=== PATIENT | male | born 1970 | race Caucasian/White ===

== ENCOUNTER 2018-07-07 14:40 | Emergency (ER) | payer OTHER ==
[2018-07-07 14:57] VITALS: BMI 31.4
[2018-07-07] MEDS ORDERED: ASPIRIN 81 MG CHEWABLE TABLETS PO ONE (15:34)
[2018-07-07] MEDS ORDERED: ASPIRIN 325 MG TABLET ONE (15:35)
--- NOTE | 2018-07-07 15:46 | PDOC ---
History of Present Illness - General Chief Complaint: Respiratory Stated Complaint: CHEST PAIN Time Seen by Provider: 07/07/18 15:03 History Source: Patient Exam Limitations: No Limitations - History of Present Illness Initial Comments: HPI: 48 y/o male presenting to [facility] ER complaining of chest pain and shortness of breath. Pt states he was walking when he suddenly felt pain to the left side of his chest that radiated into his left arm. Endorses associated shortness of breath. The pain lasted approx 1 min before resolving without intervention. Pt denies any further episodes. No history of similar. Denies active complaints at time of interview. Pt states he has been experiencing a nonproductive cough, runny nose, and occasional pleuritic chest pain for the past several weeks. Worse when lying flat. Has trialed OTC medication with some relief. Denies swelling in legs or paroxysmal nocturnal dyspnea. Denies burning sensation in chest or metallic taste in mouth. PCP: Dr. Dow Family Hx: - Mother has diabetes - Denies PA in first degree relative - Denies h/o of arrhythmias - Denies h/o of sudden Social Hx: - EtOH: Endorses drinking a little, last yesterday - Tobacco: Former smoker Medical Hx: - Pt denies past medical history. Denies prescription medications. Surgical Hx: - Pt denies past surgical history. Past History - Past Medical History Allergies/Adverse Reactions: Allergies Allergy/AdvReac Type Severity Reaction Status Date / Time No Known Allergies Allergy Verified 07/07/18 14:57 Home Medications: Ambulatory Orders Albuterol Sulfate Inhaler - [Ventolin Hfa Inhaler -] 1 - 2 inh PO Q4H PRN #1 inhaler 07/07/18 CVA: No COPD: No DVT: No Hypercholesterolemia: No Seizures: No - Surgical History Cardiac Surgery: No - Immunization History Immunization Up to Date: No - Suicide/Smoking/Psychosocial Hx Smoking History: Former smoker Have you smoked in the past 12 months: No Information on smoking cessation initiated: No Hx Alcohol Use: No Drug/Substance Use Hx: No Review of Systems - Review of Systems Able to Perform ROS?: Yes Comments:: In addition to that documented in the HPI above, the additional ROS was obtained : Constitutional: Denies fevers or chills Head: Denies headache ENMT: Denies sore throat CV: Per HPI Resp: Per HPI GI: Denies vomiting or diarrhea : Denies painful urination MSK: Denies recent trauma Skin: Denies new rashes Neuro: Denies new numbness or tingling or weakness Endocrine: Denies polyuria Heme: Denies bleeding or bruising *Physical Exam - Vital Signs Last Vital Signs Temp Pulse Resp BP Pulse Ox 97.8 F 78 18 112/74 98 07/07/18 14:53 07/07/18 14:53 07/07/18 14:53 07/07/18 14:53 07/07/18 14:53 - Physical Exam Comments: Constitutional: Well-developed, well-nourished adult male in no acute distress or obvious discomfort. Found semi-fowlers on hospital bed. Alert and oriented x4. Answered all questions appropriately and completely. Speech was non-labored , non-pressured. Head: Normocephalic. No obvious external signs of trauma. Eyes: Sclerae white. Ears: Hearing grossly intact. Nose: No nasal discharge. Neck: Supple, trachea is midline. Cardiovascular / Chest: Regular rate and regular rhythm. No murmur, rubs, clicks, or gallops. Peripheral pulses: radial pulses full. No chest wall tenderness to palpation. Respiratory: Breathing unlabored. Equal chest rise and fall. Clear to auscultation bilaterally. No stridor, no wheezing, no rhonchi. Gastrointestinal: abdomen is soft, non-tender, non-distended. Neuro: Alert and oriented. Moving all four extremities spontaneously. Skin: Warm, dry, and intact. Psych: Affect: appropriate. Mood: normal. Moderate Sedation - Procedure Monitoring Vital Signs: Procedure Monitoring Vital Signs Temperature 97.8 F 07/07/18 14:53 Pulse Rate 78 07/07/18 14:53 Respiratory Rate 18 07/07/18 14:53 Blood Pressure 112/74 07/07/18 14:53 O2 Sat by Pulse Oximetry (%) 98 07/07/18 14:53 Heart Score/ECG Review - History History: Slightly suspicious - Electrocardiogram EKG: Normal - Age Age: </= 45 - Risk Factors Risk Factors Heart Score: No Hx Hypercholesterolemia, No Hx Hypertension, No Hx Diabetes, No Smoking History, No Positive family hx of cardiac disease, No Hx Obesity Based on the list above the patient has:: No risk factors known ED Treatment Course - LABORATORY CBC & Chemistry Diagram: 07/07/18 15:34 07/07/18 15:34 - RADIOLOGY Radiology Studies Ordered: Category Date Time Status CHEST PA & LAT [RAD] Stat Radiology 07/07/18 15:32 Ordered - Medications Given in the ED: ED Medications Discontinued Medications Generic Name Dose Route Start Last Admin Trade Name Freq PRN Reason Stop Dose Admin Aspirin 324 mg 07/07/18 15:34 07/07/18 15:40 Asa - PO 07/07/18 15:35 324 mg ONCE ONE Administration *DC/Admit/Observation/Transfer Diagnosis at time of Disposition: Atypical chest pain - Discharge Dispostion Disposition: HOME Condition at time of disposition: Good Decision to Admit order: No - Prescriptions Prescriptions: Albuterol Sulfate Inhaler - [Ventolin Hfa Inhaler -] 1 - 2 inh PO Q4H PRN #1 inhaler PRN Reason: Shortness Of Breath - Referrals Referrals: Willam Govea MD [Staff Physician] - - Patient Instructions Printed Discharge Instructions: DI for Atypical Chest Pain Additional Instructions: Hoy te vieron por un breve episodio de dolor en el pecho y falta de aliento. Tu radiografa de trax, EKG y anlisis de shoshana lexx normales alvaro. El dolor probablemente no est relacionado con marie corazn. He enviado jude receta para el albuterol a marie farmacia. Ava adan se indica en la etiqueta. Usted debe seguir con un cardilogo. He colocado jude referencia para que clary bina al Dr. Govea. Tendr que llamar para hacer jude robles. El nmero est incluido en tucker paquete. Mariah puede hacer un seguimiento con un neumlogo. He colocado jude referencia para que usted bina al Dr. Couch. Tendr que llamar para hacer jude robles. El nmero est incluido en tucker paquete. Mariah puede hacer un seguimiento con marie mdico de atencin primaria. Vaya al departamento de emergencias ms cercano si marie afeccin empeora o si lucia que necesita jude evaluacin de emergencia adicional. You were seen today for a short episode of chest pain and shortness of breath. Your chest xray, EKG, and blood work were normal today. The pain is not likely related to your heart. I have sent a presciption for albuterol to your pharmacy. Take as directed on the label. You should follow up with a business assistant. I have placed a referral for you to see Dr. Govea. You will need to call to make an appointment. The number is included in this packet. You can also follow up with a hog feeder. I have placed a referral for you to see Dr. Couch. You will need to call to make an appointment. The number is included in this packet. You can also follow up with your primary care doctor. Go to the nearest emergency department if your condition worsens or you feel like you need additional emergency evaluation. Print Language: AZERI - Post Discharge Activity Forms/Work/School Notes: Back to Work
[2018-07-07 16:18] LABS: BASO % 1.1 % (0-2.0); EOS % 15.8 % (0-4.5); HEMOGLOBIN 16.6 GM/dL (11.7-16.9); LYMPH % 23.4 % (8-40); MCHC 35.4 g/dl (32.0-35.9); MEAN PLT VOLUME 8.2 fl (7.5-11.1); MONO % 9.8 % (3.8-10.2); NEUT % 49.9 % (42.8-82.8); PLATELET COUNT 157 K/MM3 (134-434); RDW 12.7 % (11.9-15.9)
[2018-07-07 16:38] LABS: ANION GAP 8 MMOL/L (8-16); BLOOD UREA NITROGEN 12 mg/dL (7-18); CALCIUM 8.5 mg/dL (8.5-10.1); CHLORIDE 108 mmol/L (98-107); CO2 26 mmol/L (21-32); CREATININE 0.8 mg/dL (0.55-1.3); GLUCOSE,RANDOM 98 mg/dL (74-106); POTASSIUM 3.5 mmol/L (3.5-5.1); SODIUM 142 mmol/L (136-145)
[2018-07-07] MEDS ORDERED: ALBUTEROL SO4 2.5/IPRATROPIUM 0.5 INH SOL 3 ML VIAL.NEB. NEB ONE ×2 (17:59→18:03)
--- NOTE | 2018-07-07 18:27 | PDOC ---
Attending Attestation - Resident Resident Name: Demetrius Joyce - ED Attending Attestation I have performed the following: I have examined & evaluated the patient, The case was reviewed & discussed with the resident, I agree w/resident's findings & plan, Exceptions are as noted - HPI HPI: 07/07/18 18:22 The patient is a 47 year old male, with no significant past medical history, who presents to the emergency department s/p transient episode of chest pain. As per patient, he experienced a sudden onset 1 minute long episode of left sided chest pain radiating to his left arm with associated shortness of breath. This resolved spontaneously and has not recurred since. Pt has never had symptoms like this before. Patient notes 2-3 weeks of cough and nasal congestion as well. While in the ED, patient has no complaints. He denies any recent fevers, chills, headache or dizziness. He denies any recent nausea, vomit, diarrhea or constipation. He denies any recent dysuria, frequency, urgency or hematuria. Allergies: NKDA - Physicial Exam PE: 07/07/18 18:24 GENERAL: Awake, alert, and fully oriented, in no acute distress. HEAD: No signs of trauma EYES: PERRLA, EOMI, sclera anicteric, conjunctiva clear ENT: Auricles normal inspection, hearing grossly normal, nares patent, oropharynx clear without exudates. Moist mucosa NECK: Nontender, no stepoffs, Normal ROM, supple, no lymphadenopathy, JVD, or masses LUNGS: + Mild wheezing R lung, no crackles or rhonchi HEART: Regular rate and rhythm, normal S1 and S2, no murmurs, rubs or gallops ABDOMEN: Soft, nontender, normoactive bowel sounds. No guarding, no rebound. No masses EXTREMITIES: Normal range of motion, no edema. No clubbing or cyanosis. No cords, erythema, or tenderness NEUROLOGICAL: Cranial nerves II through XII intact. 5/5 strength and sensation in all extremities, Normal speech, normal gait, normal cerebellar function SKIN: Warm, Dry, normal turgor, no rashes or lesions noted. - Medical Decision Making 07/07/18 18:25 47 M with transient episode of L sided chest pain lasting 1 minute, now resolved. EKG without any signs of ischemia, making ACS unlikely. PE unlikely as pt with PERC score 0. Pt with no pain currently, no radiation to back, equal pulses bilaterally, making dissection unlikely. Pt noted to have mild wheezing on exam, possibly suggestive of asthma/COPD. - Labs, trop x2 - CXR - Tanna 07/07/18 18:36 Labs wnl, trop negative CXR clear on my read Pt reassessed after nebs, lungs now clear. Pt reports improvement in cough Pt is well appearing, with normal vitals. Clinically stable for DC at this time. I discussed the physical exam findings, ancillary test results and final diagnoses with the patient. I answered all of the patient's questions. The patient was satisfied with the care received and felt comfortable with the discharge plan and treatment plan. The patient agrees to follow up with the primary care physician within 24-72 hours.
[2018-07-07 18:47] VITALS: BP 131/77; PULSE 92; TEMP 98.1
--- NOTE | 2018-07-08 11:54 | EKG ---
Test Reason : Blood Pressure : / mmHG Vent. Rate : 088 BPM Atrial Rate : 088 BPM P-R Int : 148 ms QRS Dur : 080 ms QT Int : 368 ms P-R-T Axes : 047 046 028 degrees QTc Int : 445 ms NORMAL SINUS RHYTHM WITH SINUS ARRHYTHMIA NORMAL ECG NO PREVIOUS ECGS AVAILABLE Confirmed by SHY WALLER, ABBIE ([id number]) on 07/08/2018 11:53:39 AM Referred By: Confirmed By:ABBIE BEGUM MD
== END 2018-07-07 21:40 | disposition home or self-care (01) ==
LOC: JER 14:40
PROC: 3E0F7GC Introduction of Other Therapeutic Substance into Respiratory Tract, Via Natural or Artificial Opening (ICD-10-PCS; principal; 2018-07-07)
DX: R07.89 Other chest pain (principal)
CPT/HCPCS: 36415; 71046-TC-FY; 80048; 84484; 85025; 93005; 93010; 99285-25